=== PATIENT | female | born 1980 | race Caucasian/White ===

== ENCOUNTER 2019-06-05 11:30 | Day surgery (SDC) | payer BC ==
[~2019-06-05] VITALS: Ht 160 cm; Wt 65.5 kg
[~2019-06-05 11:30] MED LIST: BCPs; CEFD300; HYDACE5 PO; IBUP800 PO; RXSULTRIDS; Verotin-Gr Cap1 EACH PO
[2019-06-05] MEDS ORDERED: Cabergoline0.5 MG PO (12:18)
--- NOTE | 2019-06-05 12:45 | NUR ---
06/05/19 1245 [place] BERNAL MULTIPLE IV ATTEMPTS, DATA MANAGEMENT ENGINEER AMAYA ABLE TO START IV IN RAC.
--- NOTE | 2019-06-05 13:28 | NUR ---
06/05/19 1328 Gricelda Gloria ABDOMEN PREPPED BY [facility]. IUD REMOVED WITHOUT DIFFICULTY AND GROSSLY IDENTIFIED BY DR. HAYDEN.
== END 2019-06-05 14:53 | disposition home or self-care (01) ==
LOC: ORSCSDS 11:30
PROVIDERS: Obstetrics & Gynecology
PROC: 0UT74ZZ Resection of Bilateral Fallopian Tubes, Percutaneous Endoscopic Approach (ICD-10-PCS; principal; 2019-06-05 12:45)
DX: Z30.2 Encounter for sterilization (principal); N80.3 Endometriosis of pelvic peritoneum
CPT/HCPCS: 88302; J0171; J0690; J1100; J1885; J2250; J2405; J2704; J2710; J3010; J7120

== ENCOUNTER 2023-03-08 04:31 | Observation (INO) | payer BC ==
[2023-03-08] VITALS (13 sets, daily range): BP systolic 89–124; BP diastolic 47–86
[~2023-03-08] VITALS: Ht 162.6 cm; Wt 74.8 kg
[~2023-03-08 04:31] MED LIST changes: +Cabergoline0.5 MG PO
[2023-03-08] MEDS ORDERED: DEXCOM G7 RECE1 EACH (05:01)
[2023-03-08] MEDS ORDERED: METFORMIN HCL500 M2 PO (05:01)
[2023-03-08] MEDS ORDERED: PROG100 (05:01)
[2023-03-08] MEDS ORDERED: IMITREX50 M2 PO (05:15)
[2023-03-08] MEDS ORDERED: ZOLOFT25 MG PO (05:15)
[2023-03-08 05:28] LABS: BASOPHILS ABSOLUTE AUTO 0.05 K/mm3 (0.00-0.23); BASOPHILS PERCENT AUTO 0 % (0-2); EOSINOPHILS ABSOLUTE AUTO 0.05 K/mm3 (0.00-0.68); EOSINOPHILS PERCENT AUTO 0 % (0-6); Hematocrit 37.6 % (33.0-51.0); Hemoglobin 12.8 g/dL (11.5-16.0); IMMATURE GRAN ABSOLUTE AUTO 0.11 K/mm3 (0.00-0.10); IMMATURE GRAN PERCENT AUTO 1 % (0-1); LYMPHOCYTES ABSOLUTE AUTO 1.66 K/mm3 (0.84-5.20); LYMPHOCYTES PERCENT AUTO 9 % (21-46); MONOCYTES ABSOLUTE AUTO 0.55 K/mm3 (0.16-1.47); MONOCYTES PERCENT AUTO 3 % (4-13); Mean Corpuscular HGB 30.1 pg (26.0-34.0); Mean Corpuscular Volume 89 fL (80-100); Mean Platelet Volume 9.3 fL (9.1-12.4); NEUTROPHILS ABSOLUTE AUTO 15.72 K/mm3 (1.96-9.15); NEUTROPHILS PERCENT AUTO 87 % (41-73); Platelet Count 262 K/mm3 (150-400); RDW Standard Deviation 38.4 fL (35.1-46.3); Red Blood Cell Count 4.25 M/mm3 (3.80-5.20); White Blood Cell Count 18.14 K/mm3 (4.00-11.30)
[2023-03-08 06:11] LABS: Albumin, Blood 4.1 g/dL (3.4-5.0); Albumin/Globulin Ratio 1.1 (0.8-1.8); Bilirubin, Total 0.3 mg/dL (0.1-1.0); Bun/Creatinine Ratio 26.5 (12.0-20.0); Calcium, Blood 9.2 mg/dL (8.5-10.1); Creatinine, Blood 0.68 mg/dL (0.40-1.00); Globulin, Blood 3.8 g/dL (2.2-4.0); Potassium, Blood 4.1 mmol/L (3.5-5.5); Total Protein, Blood 7.9 g/dL (6.4-8.2)
[2023-03-08 06:43] LABS: Source, Urine Clean Catch
[2023-03-08 06:51] LABS: Appearance, Urine Clear (Clear); Bilirubin, Urine Neg (Neg); Blood, Urine 3+ (Neg); Color, Urine Yellow (P-Yellow); Glucose Qualitative, Urine Neg (Neg); Ketones, Urine Neg (Neg); Leukocyte Esterase, Urine Neg (Neg); Nitrite, Urine Neg (Neg); Protein, Urine Neg (Neg); Specific Gravity, Urine 1.015 (1.003-1.022); Urobilinogen, Urine NORM (Normal)
[2023-03-08 07:06] LABS: Bacteria Rare /hpf; Mucus Light (0-Heavy); Squamous Epithelial Cells Mod /hpf (Few); White Blood Cells, Urine 0-2 /hpf (0-5)
--- NOTE | 2023-03-08 13:01 | NUR ---
PT ARRIVED TO RM 226 FROM PACU ORIENTED TO USE OF LIGHT, FALL PRECAUTIONS AND ROOM. LCA. HRR. BT HYPO X4. PT REPORTS PAIN TOLERABLE, DENIES NAUSEA. LAP INCISIONS TO ABD X4 W/ TISS ADHESIVE CDI. CALL LIGHT IN REACH. S.O. AT BEDSIDE.
[2023-03-08] MEDS ORDERED: OXAYDO5 M1 PO (15:10)
--- NOTE | 2023-03-08 16:17 | NUR ---
discharged VSS. PAIN CONTROLLED, PT TOLERATING DIET AND VOIDED. PRESCRIPTION GIVEN TO SPOUSE. IV DC'D, CATHETER INTACT. REVIEWED DC INSTRUCTIONS, PT VERBALIZED UNDERSTANDING. PT LEFT UNIT IN WC W/POSSESSIONS AND DC PAPERWORK IN HAND, ACCOMPANIED BY SPOUSE.
== END 2023-03-08 16:19 | disposition home or self-care (01) ==
LOC: ER 04:31 → SURS 04:32
PROVIDERS: Student in an Organized Health Care Education/Training Program; ADMIT Surgery
PROC: 0DTJ4ZZ Resection of Appendix, Percutaneous Endoscopic Approach (ICD-10-PCS; principal; 2023-03-08 11:00)
DX: K35.33 Acute appendicitis with perforation, localized peritonitis, and gangrene, with abscess (principal); Z88.1 Allergy status to other antibiotic agents
CPT/HCPCS: 74177; 80053; 81001; 82947; 83690; 85025; 88304; 96361; 96365-59; 96375; 96376; 99285-25; A9270; J0295; J1100; J1170; J1885; J2250; J2270; J2371; J2405; J2704; J3010; J7030; J7120; Q9967